=== PATIENT | female | born 1975 | race Caucasian/White ===

== ENCOUNTER 2023-08-29 14:08 | Emergency (ER) | payer BC ==
[~2023-08-29] VITALS: Ht 160 cm; Wt 61.2 kg
[2023-08-29 15:20] VITALS: TEMP 98.1
[2023-08-29 17:26] VITALS: BP 145/97; O2SAT 98
== END 2023-08-29 17:26 | disposition home or self-care (01) ==
LOC: ER 14:22
DX: S00.03XA Contusion of scalp, initial encounter (principal); W22.8XXA Striking against or struck by other objects, initial encounter; Y93.89 Activity, other specified; Y92.89 Other specified places as the place of occurrence of the external cause; Y99.8 Other external cause status
CPT/HCPCS: 70450-TC